=== PATIENT | female | born 1935 | race Caucasian/White ===

== ENCOUNTER 2020-09-27 09:41 | Emergency (ER) | payer MEDICARE ==
[~2020-09-27 09:41] MED LIST: ALEVE220 MG PO; ASPIRIN CHEWABL81 MG PO; ASPIRIN EC81 MG PO; CRESTOR20 MG PO; DICLOFENAC SODI50 MG PO; DITROPAN 5 MG TA5 MG PO; ELIQUIS 5 MG TAB5 MG PO; ELIQUIS5 MG PO; IBU-200200 MG PO; K-TAB ER10 MEQ PO; KEFLEX CAP 500500 MG PO; LASIX20 MG PO; PANTOPRAZOLE SO40 MG PO; PERCOCET 5/325 T1 EA PO; PHENERGAN 12.12.5 M1 PO; PRINIVIL10 MG PO; PROTONIX40 MG PO
[2020-09-27 11:20] LABS: HEMOGLOBIN 14.7 gm/dl (12.3-15.3); RED BLOOD COUNT 4.75 M/UL (4.00-5.10); WHITE BLOOD COUNT 11.8 K/UL (4.5-11.0)
[2020-09-27 11:51] LABS: BUN/CREATININE RATIO 16 (0-10)
== END 2020-09-27 15:07 | disposition home or self-care (01) ==
LOC: ER1 09:41
PROVIDERS: Physician Assistant
DX: T14.8XXA Other injury of unspecified body region, initial encounter (principal); M54.5 Low back pain; M25.551 Pain in right hip; M79.651 Pain in right thigh; M25.511 Pain in right shoulder; I10 Essential (primary) hypertension; I48.91 Unspecified atrial fibrillation; W19.XXXA Unspecified fall, initial encounter; Y92.009 Unspecified place in unspecified non-institutional (private) residence as the place of occurrence of the external cause
CPT/HCPCS: 72131; 73030; 73502; 73552; 80053; 82550; 82553; 83874; 84484; 85025; 99284